=== PATIENT | female | born 1935 | race Caucasian/White ===

== ENCOUNTER → 2016-11-22 | Outpatient (CLI) | payer OTHER ==
[~2016-11-22] VITALS: Ht 160 cm; Wt 87.1 kg
[~2016-11-22] MED LIST: ADVAIR 100-501 EACH; ADVAIR 250-501 EACH INH; ALEVE220 M1 PO; ALEVE220 MG PO; ASPIRIN81 M2 PO; ATORVASTATIN CA40 MG PO; AZELASTINE205.5 MCG/ INH; BLADDER MED; CELEXA 10 MG TA10 M1; CELEXA10 MG PO; CENTRUM SILVER1 EAC4 PO; COUMADIN 2 MG TA2 M1 PO; DEXILANT60 MG PO; FISH OIL 1,001000 M2 PO; FLAXSEED OIL1000 M2 PO; HYDROCODON-ACE1 EAC5 PO; HYDROCODONE-AP1 EAC6 PO; METROGEL55 GM TRANSDERM; MOBIC7.5 MG PO; NAPROSYN250 MG PO; NEURONTIN 300300 M1 PO; NORCO 5-325 TA1 EACH PO; OCUVEL CAPSULE1 EACH PO; OXYBUTYNIN 5 MG5 M2 PO; PLAVIX 75 MG TA75 M1 PO; RESTASIS1 EACH OPHTHALMIC; SYMBICORT160 MCG/4. INH; TOPROL XL25 MG PO; ULTRACET TABLET1 TAB PO; VALACYCLOVIR1000 MG PO; VITAMIN C500 M1 PO
--- NOTE | ~2016-11-22 | HPC ---
[facility] [place] [address] PAIN MANAGEMENT CONSULTATION Name: KINGSLEY MOELLER Room #: REG IRVING Gupta.#: [id number] Admission: 11/22/16 Attend Phys: Bambi Gardner MD Discharge: Date of : 34 Report #: [id number] THIS REPORT FOR: //name// CC: Han Chowdary DATE OF SERVICE: 11/22/2016 PRIMARY CARE PHYSICIAN: Dr. Han Hoff. FOLLOWUP COMPLAINT: Increased back and hip pain since Sunday. FOLLOWUP HISTORY: The patient is an 81-year-old female who has been seen in the pain clinic in the past because of lumbar radiculopathy. She has undergone epidural steroid injections. She returns today indicating that she has noted a worsening of her pain. This started about 3 days ago. After cooking and doing other activities, she noted worsening of pain in her back. At this juncture, it is rated as a 7/10. It involves her right thigh as well as her right hip. She has some pain and discomfort in the anterior portion of her right thigh. She has had some left shoulder discomfort as well. She takes an antiplatelet medication. She is on Plavix. She took the medication this morning. She notes that her pain is worse when she gets up in the morning. It can be problematic when she goes from a sitting to a standing activity. She has used tramadol. This has been marginally helpful. She feels that another epidural steroid injection might be helpful. She was thinking about undergoing an epidural steroid injection. PHYSICAL EXAMINATION: Blood pressure 156/94, pulse 93, respiratory rate 16, room air saturation 97%. Height 5 foot 3, weight 87 kilograms. BMI is 34. The patient has pain and discomfort in the low back area near L4-L5 and L5-S1. Palpation in these areas can reproduce a component of her discomfort. She also has pain, which is radiating down into her right back and into the right thigh. She has been walking with a slight limp and antalgic gait. Overall, her physical therapist says that she is walking reasonably well. She had her hip replaced about 9 months ago. IMPRESSION: 1. Low back pain with some pain radiating down into the legs. History of lumbar radiculopathy. 2. Coronary artery disease with stent placement, treated with Plavix. RECOMMENDATIONS: We discussed treatment options with the patient. Risks and benefits of an epidural steroid injection were reviewed. Given that the patient is on Plavix, we will have her discontinue this medication in followup in the near future, at which time we will consider an epidural steroid injection. We [address] [address] PAIN MANAGEMENT CONSULTATION Name: KINGSLEY MOELLER [facility] [id number] Admission: 11/22/16 Attend Phys: Bambi Gardner MD Discharge: Date of : 34 Report #: [id number] will try a conservative approach. A script for gabapentin 300 mg to be tapered upward per the schedule has been given. The patient will call us if she has any problems with this medication. We would like to thank you for letting us participate in her care. We hope she continues to improve. By: 1323 1435 Bambi Gardner MD /nt
[2016-11-22 10:40] VITALS: BP 156/94
== END ==
LOC: PAIN 11-15 06:39
DX: M54.5 Low back pain (principal); Z86.79 Personal history of other diseases of the circulatory system; Z87.891 Personal history of nicotine dependence

== ENCOUNTER → 2017-01-02 | Outpatient (CLI) | payer OTHER ==
--- NOTE | ~2017-01-02 | 2DMMODE ---
[facility] [address] [employer] [place] [address] 2 D/M-MODE ECHOCARDIOGRAM Name: SAJANKINGSLEY Steve Room #: REG [facility]#: [id number] Admission: 01/02/17 Attend Phys: Andrei Luna MD Discharge: Date of : 34 Date of Service: 01/02/17 1756 Report #: [id number] THIS REPORT FOR: //name// APPROVED REPORT Study performed: 01/02/2017 14:20:41 EXAM: Comprehensive 2D, Doppler, and color-flow Echocardiogram Patient Location: Echo lab Blood Pressure: 139/93 mmHg HR: 66 bpm Other Information Study Quality: Fair Indications Abnormal ECG CAD 2D Dimensions RVDd: 35.20 mm LVEF(%): 58.88 (>50%) IVSd: 12.09 (7-11mm) LVOT Diam: 18.36 (18-24mm) LVDd: 42.69 mm PWd: 11.92 (7-11mm) Ascending Ao: 27.55 (22-36mm) LVDs: 29.50 (25-40mm) Aortic Root: 27.14 mm IVC: 20.00 mm Hollins's LVEF: 58.88 % Volumes Left Atrial Volume (Systole) Single Plane 4CH: 36.14 mL Single Plane 2CH: 31.95 mL LA ESV Index: 20.00 mL/m2 Aortic Valve AoV Peak Brady.: 1.47 m/s AO Peak Gr.: 8.67 mmHg LVOT Max P.71 mmHg LVOT Max V: 0.82 m/s AILEEN Vmax: 1.48 cm2 Mitral Valve E/A Ratio: 0.5 MV Decel. Time: 212.98 ms [facility] [place] [address] 2 D/M-MODE ECHOCARDIOGRAM Name: KINGSLEY MOELLER Steve Room #: [facility]#: [id number] Admission: 01/02/17 Attend Phys: Andrei Luna MD Discharge: Date of : 34 Date of Service: 01/02/17 1756 Report #: [id number] MV E Max Brady.: 0.63 m/s MV A Brady.: 1.30 m/s MV PHT: 61.76 ms IVRT: 173.01 ms Pulmonary Valve PV Peak Brady.: 1.07 m/s PV Peak Gr.: 4.57 mmHg Pulmonary Vein P Vein S: 47.8 m/s P Vein A: 28.08 m/s P Vein D: 42.3 m/s P Vein A Dur.: 128.0 msec Tricuspid Valve TR Peak Brady.: 2.93 m/s RAP Estimate: 10.00 mmHg TR Peak Gr.: 34.29 mmHg Left Ventricle The left ventricle is normal size. There is normal LV segmental wall motion. Mild concentric left ventricular hypertrophy. There is no ventricular septal defect visualized. The left ventricular systolic function is normal. The left ventricular ejection fraction is within the normal range. No left ventricle thrombus noted on this study. LVEF is 55-60%. Mild diastolic dysfunction is present (impaired relaxation pattern). Right Ventricle The right ventricle is normal size. There is normal right ventricular wall thickness. The right ventricular systolic function is normal. Atria The left atrium size is normal. The interatrial septum is intact with no evidence for an atrial septal defect. The right atrium size is normal. Aortic Valve The aortic valve is normal in structure. Trace aortic regurgitation. There is no aortic valvular vegetation. There is no aortic valvular stenosis. Mitral Valve The mitral valve is normal in structure. Mild mitral regurgitation. There is no evidence of mitral valve vegetations. No evidence of mitral valve stenosis. There is no evidence of mitral valve prolapse. [facility] [address] [place] [address] 2 D/M-MODE ECHOCARDIOGRAM Name: KINGSLEY MOELLER Room #: REG CL [facility]#: [id number] Admission: 01/02/17 Attend Phys: Andrei Luna MD Discharge: Date of : 34 Date of Service: 01/02/17 1756 Report #: [id number] Tricuspid Valve The tricuspid valve is normal in structure. There is no tricuspid valve stenosis. Mild tricuspid regurgitation. There is no tricuspid valve vegetations. Pulmonic Valve The pulmonary valve is normal in structure. There is no pulmonic valvular stenosis. Mild pulmonic regurgitation. There is no pulmonic valve vegetations. Great Vessels The aortic root is normal in size. The ascending aorta is normal in size. IVC is upper limits of normal and does not appear to collapse. The pulmonary artery is normal. Pericardium There is no pericardial effusion. There is no pleural effusion. <Conclusion> The left ventricle is normal size. LVEF is 55-60%. The aortic valve is normal in structure. Trace aortic regurgitation. The mitral valve is normal in structure. Mild mitral regurgitation. The tricuspid valve is normal in structure. Mild tricuspid regurgitation. The pulmonary valve is normal in structure. Mild pulmonic regurgitation. <ELECTRONICALLY SIGNED> By: Aniceto Mcgee MD 01/02/171755 55 55 Aniceto Mcgee MD /INF
== END ==
LOC: CV 12-11 11:06
DX: I25.10 Atherosclerotic heart disease of native coronary artery without angina pectoris (principal)

== ENCOUNTER → 2017-05-03 | Outpatient (CLI) | payer OTHER | LOC: RAD 04-20 13:26 | DX: Z12.31 Encounter for screening mammogram for malignant neoplasm of breast (principal) ==

== ENCOUNTER → 2017-05-18 | Outpatient (CLI) | payer OTHER | LOC: ULTRA 08:17 | DX: M71.22 Synovial cyst of popliteal space [Baker], left knee (principal); M79.89 Other specified soft tissue disorders ==

== ENCOUNTER 2017-06-15 08:20 | Outpatient (CLI) | payer OTHER ==
[~2017-06-15] VITALS: Ht 160 cm; Wt 81.8 kg
--- NOTE | ~2017-06-15 | EKG ---
[address] [address] ELECTROCARDIOGRAM REPORT Name: KINGSLEY MOELLER Steve [id number] Admission: 06/15/17 Attend Phys: Mio Blanca Discharge: Date of : 34 Report #: [id number] THIS REPORT FOR: //name// [facility] Test Date: 2017-06-15 Test Time: 10:37:15 Pat Name: KINGSLEY MOELLER Department: Room: Gender: F [employer] Controller: Steve WOOD : 1935 Requested By: Mio Domingo Order Number: [id number] MD: Sal Lilly Measurements Intervals [place] Rate: 130 P: 0 PA: 57 QRS: -42 QRSD: 144 T: 107 QT: 373 QTc: 549 Interpretive Statements Sinus tachycardia Left bundle branch block Compared to ECG 10/04/2016 14:09:34 Sinus rhythm no longer present Electronically Signed On 06-15-2017 10:55:30 CDT by Sal Lilly [email or web address] <ELECTRONICALLY SIGNED> By: Sal Lilly MD 06/15/17 1055 1037 1037 Sal Lilly MD /CAROLINE
--- NOTE | ~2017-06-15 | P ---
[facility] [place] [address] [place] [address] PROCEDURE REPORT Name: KINGSLEY MOELLER Steve Room #: [facility] IRVING White#: [id number] Admission: 06/15/17 Attend Phys: Mio Blanca Discharge: 06/16/17 Date of : 34 Report #: [id number] THIS REPORT FOR: //name// CC: Mio Domingo Zay Chowdary DATE OF SERVICE: 06/16/2017 PREOPERATIVE DIAGNOSIS: Left bundle branch block and complete heart block. POSTOPERATIVE DIAGNOSIS: Left bundle branch block and complete heart block. HISTORY: The patient is an 81-year-old with a history of chronic left bundle branch block who had an episode of complete heart block in the postoperative setting. She is here for dual chamber pacemaker implantation. ANESTHESIA: The patient underwent MAC anesthesia with no anesthesia related complications. DESCRIPTION OF PROCEDURE: The patient underwent informed consent. We discussed the details of the procedure including the risks, which included, but not limited to bleeding, infection, vascular damage, cardiac perforation, or pneumothorax. She understood these risks and is willing to proceed. As such, she was brought to the EP laboratory in a fasting and sedated state, prepped and draped in a sterile fashion, received IV antibiotics and underwent a venogram showing patency of the left axillary vein. Next, I injected lidocaine below the level of left clavicle. Incision was made over the prepectoral fascia and access was then obtained twice to the left axillary vein with sheaths positioned using the modified Seldinger technique and leads were positioned in the right ventricular apex and right atrial appendage both with adequate pacing and sensing thresholds. The leads were sutured to the prepectoral fascia, the device was connected, the pocket was irrigated with vancomycin and the pocket was then closed in 3 layers. Surgical glue was placed to the outer skin layer. The patient awoke neurologically and hemodynamically intact, no complications and no significant bleeding. The implanted pacemaker was [employer] model #[id number], serial #[id number]. Atrial lead was a [employer] model #2088TC, 46 cm, serial [id number] and the RV lead was a [employer] model #2088TC, 52 cm, serial #[id number]. The atrial lead demonstrated P-wave of 1.2 millivolts, pacing impedance of 410 ohms and the pacing threshold 1 volt at 0.4 milliseconds. The RV lead demonstrated R-wave of 7.0 millivolts, pacing impedance of 590 ohms and the pacing threshold of 0.5 volts at 0.4 milliseconds. The device was programmed to the DDD 60-130 mode. CONCLUSIONS: [facility] [address] [place] [address] PROCEDURE REPORT Name: KINGSLEY MOELLER Room #: DEP IRVING White#: [id number] Admission: 06/15/17 Attend Phys: Mio Blanca Discharge: 06/16/17 Date of : 34 Report #: [id number] 1. Successful dual-chamber pacemaker implantation. 2. Satisfactory atrial and ventricular pacing and sensing thresholds. <ELECTRONICALLY SIGNED> By: Sal Lilly MD 07/13/17 1045 1439 0117 Sal Lilly MD /nt
--- NOTE | ~2017-06-15 | S ---
[facility] [place] [address] [address] SURGICAL PATH RPT PROCEDURE Name: KRYSTAL BEAN Room #: DEP [facility].#: [id number] Admission: 06/15/17 Date of : 34 Discharge: 06/16/17 Report #: [id number] Path Case #: [id number] PATHOLOGY REPORT COLLECTION DATE: 06/15/2017 RECEIVED DATE: 06/15/2017 SUBMITTING PHYS: Dr. Melanie Barba OTHER PHYS: Dr. Zay Chowdary SPECIMEN(S) RECEIVED: A.Rectal polyp x2 * * * * * * * * * * * * FINAL DIAGNOSIS: Polyp x2, rectal polyp, endoscopic biopsy: - Hyperplastic polyp identified in all fragments sampled. - Negative for dysplasia. ([facility]; 06/18/2017) PATHOLOGIST: Bita Ascencio M.D. REPORT ELECTRONICALLY SIGNED BY: Bita Ascencio M.D. DATE/TIME: 06/18/2017 17:24 * * * * * * * * * * * * GROSS PATHOLOGY: Received in formalin labeled "Krystal Bean, rectal polyp 2" is a specimen consisting of two portions of smith-brown mucosa which measure 0.3 x 0.2 x 0.2 cm and 0.2 x 0.2 x 0.1 cm. The specimen is submitted entirely in cassette A1. ([facility]; 06/17/2017) CLINICAL HISTORY: Screening, diverticulosis, rectal polyps. INITIAL CPT CODE(S): A; 29791 Professional services performed by [facility] at [facility] [address] [place] [address] Technical services performed by [facility] at [address] [place] [address]. [facility] [address] [place] [address] SURGICAL PATH RPT PROCEDURE Name: KRYSTAL BEAN Room #: SHOAIB White#: [id number] Admission: 06/15/17 Date of : 34 Discharge: 06/16/17 Report #: [id number] Path Case #: [id number] [address] PHONE: [phone] DIRECTOR: Korey Lama M.D. * * * END OF REPORT * * *
--- NOTE | ~2017-06-15 | P ---
[facility] [place] [address] PROCEDURE REPORT Name: KINGSLEY MOELLER Room #: DEP Alecia White#: [id number] Admission: 06/15/17 Attend Phys: Mio Blanca Discharge: 06/16/17 Date of : 34 Report #: [id number] THIS REPORT FOR: //name// CC: Mio Chowdary MD DATE OF SERVICE: 06/15/2017 PROCEDURE PERFORMED: Colonoscopy with biopsies. HISTORY OF PRESENT ILLNESS: The patient is an 81-year-old female recently seen in the office with change in bowel habits, having more constipation, but has diarrhea at times, intermittent abdominal pain. She has a family history of colon cancer in a grandfather, she states that her stools have been thin at times. She has tried MiraLax, which is somewhat helpful. She has been using Levsin since the office visit, which has been helpful. Plan is for colonoscopy. PROCEDURE: The risks and benefits of the procedure were explained to the patient, those risks including, but not limited to bleeding, perforation, and the risk of sedation. She understood these risks and gave informed consent. Sedation was given using propofol per anesthesia. Next, a digital rectal exam was initially performed, which was normal. Next, using a standard Fujinon colonoscope, the scope was placed in the patient's anus and advanced under direct vision to the cecum. The overall prep was excellent. The cecum and ileocecal valve were normal in appearance. Ascending, transverse and descending colon were normal. A few scattered diverticula were noted in the sigmoid colon, no evidence of inflammation, otherwise normal. In the rectum, two 3-4 mm sessile polyps were noted, both were removed with cold forceps. On retroflexion, nonbleeding internal hemorrhoids were noted. The scope was then withdrawn and the procedure terminated. The patient tolerated the procedure well. IMPRESSION: 1. Sigmoid diverticulosis. 2. Two small rectal polyps. 3. Internal hemorrhoids. 4. Otherwise, normal colonoscopy. RECOMMENDATIONS: 1. Await biopsy results. 2. Recommend continue MiraLax and Levsin on a p.r.n. basis, consider CT scan of the abdomen and pelvis if the patient has continued symptoms. [address] [address] PROCEDURE REPORT Name: KINGSLEY MOELLER Room #: DEP IRV[facility] White#: [id number] Admission: 06/15/17 Attend Phys: Mio Blanca Discharge: 06/16/17 Date of : 34 Report #: [id number] Thank you for allowing me to participate in her care. <ELECTRONICALLY SIGNED> By: Mio Domingo MD 06/19/17 1210 1008 1051 Mio Domingo MD /nt
--- NOTE | ~2017-06-15 | 2DMMODE ---
[facility] [place] [address] 2 D/M-MODE ECHOCARDIOGRAM Name: KINGSLEY MOELLER Room #: REG [facility]#: [id number] Admission: 06/15/17 Attend Phys: Mio Redman Discharge: Date of : 34 Date of Service: 06/15/17 1339 Report #: [id number] THIS REPORT FOR: //name// APPROVED REPORT Study performed: 06/15/2017 12:46:40 EXAM: Limited 2D, Doppler, and color-flow Echocardiogram Patient Location: GI LAB Status: routine BSA: 1.80 HR: 105 bpm Other Information Study Quality: Adequate Technically limited study due to lung artifact. Indications Limited follow echo for Heart block. Aortic Valve AoV Peak Brady.: 1.29 m/s AO Peak Gr.: 6.68 mmHg Tricuspid Valve TR Peak Brady.: 2.40 m/s RAP Estimate: 5.00 mmHg TR Peak Gr.: 22.98 mmHg PA Pressure: 28.00 mmHg Left Ventricle The left ventricle is normal size. Paradoxical septal motion consistent with conduction abnormality. Left ventricular systolic function is normal. LVEF is 50-55%. This study is not technically sufficient to allow evaluation of the LV diastolic function. Right Ventricle The right ventricle is normal size. The right ventricular systolic function is normal. Atria The left atrium size is normal. The right atrium size is normal. Aortic Valve [facility] [address] [employer] [place] [address] 2 D/M-MODE ECHOCARDIOGRAM Name: KINGSLEY MOELLER Room #: REG [facility].#: [id number] Admission: 06/15/17 Attend Phys: Mio Redman Discharge: Date of : 34 Date of Service: 06/15/17 1339 Report #: [id number] The aortic valve is normal in structure. No aortic regurgitation is present. There is no aortic valvular stenosis. Mitral Valve The mitral valve is normal in structure. There is no mitral valve regurgitation noted. Tricuspid Valve The tricuspid valve is normal in structure. Trace to mild tricuspid regurgitation. Estimated PAP is 28mmHg. Great Vessels IVC is normal in size and collapses >50% with inspiration. Pericardium There is no pericardial effusion. <Conclusion> The left ventricle is normal size. Paradoxical septal motion consistent with conduction abnormality. LVEF is 50-55%. The aortic valve is normal in structure. The mitral valve is normal in structure. The tricuspid valve is normal in structure. Trace to mild tricuspid regurgitation. Estimated PAP is 28mmHg. There is no pericardial effusion. <ELECTRONICALLY SIGNED> By: Aniceto Mcgee MD 06/15/17 1339 133 1339 Aniceto Mcgee MD /INF
--- NOTE | ~2017-06-15 | CATHLAB ---
[facility] [address] [place] [address] INVASIVE PROCEDURE REPORT Name: KINGSLEY MOELLER Room #: SHOAIB White#: [id number] Admission: 06/15/17 Attend Phys: Mio Redman Discharge: 06/16/17 Date of : 33 Date of Service: Report #: [id number] THIS REPORT FOR: //name// By: D: T: /INF
[2017-06-15 13:46] LABS: HEMATOCRIT 44.7 % (37.0-47.0); MCHC 33.6 g/dL (28.0-37.0); MCV 89.4 fL (80.0-100.0); RDW 14.3 % (10.5-14.5); WBC 7.4 thou/uL (4.0-11.0)
[2017-06-15 13:55] LABS: APTT 29.1 Seconds (24.5-32.8); INR 1.1; PROTIME 10.9 Seconds (9.3-11.4)
[2017-06-15 13:59] VITALS: BP 114/70
[2017-06-15 14:10] LABS: ALBUMIN 3.4 g/dL (3.4-5.0); CREATININE 0.9 mg/dL (0.6-1.0); POTASSIUM 3.5 mmol/L (3.5-5.1); TOTAL BILIRUBIN 0.4 mg/dL (<0.1-1.0); TOTAL PROTEIN 6.7 g/dL (6.4-8.2)
[2017-06-15] MEDS ORDERED: OXYBUTYNIN 5 MG5 M2 PO (14:11)
[2017-06-15] MEDS ORDERED: OCUVITE LUTEIN1 EAC1 PO (14:13)
[2017-06-15 14:18] LABS: CALCIUM 8.9 mg/dL (8.5-10.1)
[2017-06-15 18:38] VITALS: BP 146/85
[2017-06-15 19:32] VITALS: BP 158/102
[2017-06-15 23:36] VITALS: BP 138/80
[2017-06-16 04:20] VITALS: BP 134/71
[2017-06-16 04:27] VITALS: BP 134/71
[2017-06-16 07:20] VITALS: BP 143/79
[2017-06-16 11:50] VITALS: BP 147/77
[2017-06-16 12:32] VITALS: BP 147/77
[2017-06-16 14:43] VITALS: BP 147/77
== END 2017-06-16 14:55 | disposition home or self-care (01) ==
LOC: GI 08:20 → 2N 19:23 → GI 06-16 14:55
PROVIDERS: Internal Medicine Cardiovascular Disease; Nurse Practitioner Gerontology
DX: I44.7 Left bundle-branch block, unspecified (principal); I44.2 Atrioventricular block, complete; K57.30 Diverticulosis of large intestine without perforation or abscess without bleeding; K62.1 Rectal polyp; K64.8 Other hemorrhoids; J45.909 Unspecified asthma, uncomplicated; F32.9 Major depressive disorder, single episode, unspecified; K21.9 Gastro-esophageal reflux disease without esophagitis; B00.89 Other herpesviral infection; I25.10 Atherosclerotic heart disease of native coronary artery without angina pectoris; I10 Essential (primary) hypertension; E78.5 Hyperlipidemia, unspecified; Z88.1 Allergy status to other antibiotic agents; Z88.2 Allergy status to sulfonamides; Z79.82 Long term (current) use of aspirin; Z79.899 Other long term (current) drug therapy; Z87.891 Personal history of nicotine dependence; Z80.0 Family history of malignant neoplasm of digestive organs; Z82.49 Family history of ischemic heart disease and other diseases of the circulatory system; Z95.5 Presence of coronary angioplasty implant and graft; Z86.73 Personal history of transient ischemic attack (TIA), and cerebral infarction without residual deficits
CPT/HCPCS: 10081; 62110; 70005

== ENCOUNTER → 2017-06-22 | Outpatient (CLI) | payer OTHER ==
[~2017-06-22] MED LIST changes: +OCUVITE LUTEIN1 EAC1 PO
== END ==
LOC: CAT 09:21
DX: J01.90 Acute sinusitis, unspecified (principal); M26.69 Other specified disorders of temporomandibular joint

== ENCOUNTER → 2017-07-27 | Outpatient (CLI) | payer OTHER | LOC: RAD 12:23 | DX: J98.11 Atelectasis (principal); R09.89 Other specified symptoms and signs involving the circulatory and respiratory systems; J98.4 Other disorders of lung; I25.10 Atherosclerotic heart disease of native coronary artery without angina pectoris; Z98.890 Other specified postprocedural states ==

== ENCOUNTER → 2017-08-01 | Outpatient (CLI) | payer OTHER ==
[2017-08-01 09:49] LABS: CREATININE 0.9 mg/dL (0.6-1.0)
== END ==
LOC: LABMALL 08:52
PROVIDERS: Internal Medicine Pulmonary Disease
DX: R06.00 Dyspnea, unspecified (principal); G47.33 Obstructive sleep apnea (adult) (pediatric)

== ENCOUNTER → 2017-09-21 | Outpatient (CLI) | payer OTHER | LOC: CAT 13:13 | DX: J01.91 Acute recurrent sinusitis, unspecified (principal) ==

== ENCOUNTER → 2017-10-26 | Outpatient (CLI) | payer OTHER | LOC: LABMALL 09:12 | PROVIDERS: Internal Medicine Pulmonary Disease | DX: J98.4 Other disorders of lung (principal); J47.9 Bronchiectasis, uncomplicated ==

== ENCOUNTER → 2017-11-02 | Outpatient (CLI) | payer OTHER | LOC: SLEEPLAB 11:42 | DX: G47.33 Obstructive sleep apnea (adult) (pediatric) (principal); R06.00 Dyspnea, unspecified ==

== ENCOUNTER → 2017-12-07 | Outpatient (CLI) | payer OTHER | LOC: SLEEPLAB 07:53 | DX: G47.33 Obstructive sleep apnea (adult) (pediatric) (principal) ==

== ENCOUNTER → 2018-06-25 | Outpatient (CLI) | payer OTHER ==
--- NOTE | ~2018-06-25 | 2DMMODE ---
[facility] [place] [address] 2 D/M-MODE ECHOCARDIOGRAM Name: KINGSLEY MOELLER Room #: REG [facility]#: [id number] Admission: 06/25/18 Attend Phys: Sal Lilly Discharge: Date of : 33 Date of Service: 06/25/18 1134 Report #: [id number] THIS REPORT FOR: //name// APPROVED REPORT Study performed: 06/25/2018 10:08:31 EXAM: Comprehensive 2D, Doppler, and color-flow Echocardiogram Patient Location: Echo lab Room #: 206 Status: routine BSA: 1.80 HR: 69 bpm BP: 153/71 mmHg Rhythm: NSR Other Information Study Quality: Adequate Technically limited study due to lung artifact. Indications Pacemaker, short of breath. Hx: CAD, stents. 2D Dimensions RVDd: 38.98 mm IVSd: 13.56 (7-11mm) LVOT Diam: 18.38 (18-24mm) LVDd: 42.90 mm PWd: 8.76 (7-11mm) Ascending Ao: 29.38 (22-36mm) LVDs: 28.19 (25-40mm) Aortic Root: 28.40 mm Volumes Left Atrial Volume (Systole) Single Plane 4CH: 26.07 mL Single Plane 2CH: 42.02 mL LA ESV Index: 21.00 mL/m2 Aortic Valve AoV Peak Brady.: 1.59 m/s AO Peak Gr.: 10.08 mmHg LVOT Max P.88 mmHg LVOT Max V: 1.10 m/s AILEEN Vmax: 1.84 cm2 Mitral Valve E/A Ratio: 0.5 [facility] [place] [address] 2 D/M-MODE ECHOCARDIOGRAM Name: KINGSLEY MOELLER Room #: [facility]#: [id number] Admission: 06/25/18 Attend Phys: Sal Lilly Discharge: Date of : 33 Date of Service: 06/25/18 1134 Report #: [id number] MV Decel. Time: 288.63 ms MV E Max Brady.: 0.62 m/s MV A Brady.: 1.20 m/s MV PHT: 83.70 ms IVRT: 78.43 ms Pulmonary Valve PV Peak Brady.: 1.07 m/s PV Peak Gr.: 4.56 mmHg Pulmonary Vein P Vein S: 0.48 m/s P Vein A: 0.35 m/s P Vein D: 0.20 m/s P Vein A Dur.: 133.8 msec P Vein S/D Ratio: 2.40 Tricuspid Valve TR Peak Brady.: 2.71 m/s RAP Estimate: 5.00 mmHg TR Peak Gr.: 29.32 mmHg PA Pressure: 34.00 mmHg Left Ventricle The left ventricle is normal size. Paradoxical septal motion consistent with paced rhythm. Mild concentric left ventricular hypertrophy. Left ventricular systolic function is normal. LVEF is 55%. Mild diastolic dysfunction is present (impaired relaxation pattern). Right Ventricle The right ventricle is normal size. The right ventricular systolic function is normal. Atria The left atrium size is normal. The right atrium size is normal. Aortic Valve Aortic valve leaflets are mildly thickened. No aortic regurgitation is present. There is no aortic valvular stenosis. Mitral Valve The mitral valve is normal in structure. Mild mitral regurgitation. Tricuspid Valve The tricuspid valve is normal in structure. Mild tricuspid regurgitation. Estimated PAP is 35mmHg. [facility] [address] [place] [address] 2 D/M-MODE ECHOCARDIOGRAM Name: KINGSLEY MOELLER Room #: [facility] [id number] Admission: 06/25/18 Attend Phys: Sal Lilly Discharge: Date of : 33 Date of Service: 06/25/18 1134 Report #: [id number] Pulmonic Valve Pulmonic valve is not well visualized. Mild pulmonic regurgitation. Great Vessels The aortic root is normal in size. The ascending aorta is normal in size. IVC is normal in size and collapses >50% with inspiration. Pericardium There is no pericardial effusion. <Conclusion> The left ventricle is normal size. LVEF is 55%. Paradoxical septal motion consistent with paced rhythm. Aortic valve leaflets are mildly thickened. The mitral valve is normal in structure. Mild mitral regurgitation. The tricuspid valve is normal in structure. Mild tricuspid regurgitation. Estimated PAP is 35mmHg. Pulmonic valve is not well visualized. Mild pulmonic regurgitation. There is no pericardial effusion. <ELECTRONICALLY SIGNED> By: Aniceto Mcgee MD 06/25/18 1134 1134 1134 Aniceto Mcgee MD /INF
== END ==
LOC: CV 09:44
DX: I08.1 Rheumatic disorders of both mitral and tricuspid valves (principal); I25.10 Atherosclerotic heart disease of native coronary artery without angina pectoris; Z95.0 Presence of cardiac pacemaker

== ENCOUNTER → 2018-11-05 | Outpatient (CLI) | payer OTHER | LOC: CAT 09:17 | DX: R51 Headache (principal) ==

== ENCOUNTER → 2018-12-18 | Outpatient (CLI) | payer OTHER | LOC: CAT 12:29 | DX: M47.812 Spondylosis without myelopathy or radiculopathy, cervical region (principal); M50.31 Other cervical disc degeneration, high cervical region; M48.02 Spinal stenosis, cervical region; Z88.0 Allergy status to penicillin; Z88.1 Allergy status to other antibiotic agents; Z88.2 Allergy status to sulfonamides ==

== ENCOUNTER → 2019-05-20 | Outpatient (CLI) | payer OTHER | LOC: RAD 10:36 | DX: Z12.31 Encounter for screening mammogram for malignant neoplasm of breast (principal) ==

== ENCOUNTER → 2019-06-30 | Outpatient (CLI) | payer OTHER | LOC: NUC 11:43 | DX: R07.9 Chest pain, unspecified (principal); I48.91 Unspecified atrial fibrillation; I25.10 Atherosclerotic heart disease of native coronary artery without angina pectoris; Z95.0 Presence of cardiac pacemaker; Z82.49 Family history of ischemic heart disease and other diseases of the circulatory system; Z87.891 Personal history of nicotine dependence ==

== ENCOUNTER → 2020-06-03 | Outpatient (CLI) | payer OTHER | LOC: SJCVC 13:14 | PROVIDERS: ATTEND Internal Medicine Cardiovascular Disease | DX: Z45.018 Encounter for adjustment and management of other part of cardiac pacemaker (principal); I44.7 Left bundle-branch block, unspecified; R94.31 Abnormal electrocardiogram [ECG] [EKG]; I49.3 Ventricular premature depolarization; I49.5 Sick sinus syndrome; I44.2 Atrioventricular block, complete; I25.10 Atherosclerotic heart disease of native coronary artery without angina pectoris; K21.9 Gastro-esophageal reflux disease without esophagitis; J45.909 Unspecified asthma, uncomplicated; I10 Essential (primary) hypertension; Z82.49 Family history of ischemic heart disease and other diseases of the circulatory system; Z79.899 Other long term (current) drug therapy; Z87.891 Personal history of nicotine dependence; Z79.82 Long term (current) use of aspirin ==

== ENCOUNTER → 2020-06-23 | Outpatient (CLI) | payer OTHER | LOC: BC 10:18 | PROVIDERS: ATTEND Family Medicine | DX: Z12.31 Encounter for screening mammogram for malignant neoplasm of breast (principal) ==

== ENCOUNTER → 2021-02-01 | Outpatient (CLI) | payer OTHER | LOC: RAD 13:14 | PROVIDERS: ATTEND Internal Medicine | DX: J98.11 Atelectasis (principal) ==

== ENCOUNTER → 2021-06-14 | Outpatient (CLI) | payer OTHER | LOC: SJCVCIMAG 13:46 | PROVIDERS: ATTEND Internal Medicine Cardiovascular Disease | DX: R94.31 Abnormal electrocardiogram [ECG] [EKG] (principal); I08.8 Other rheumatic multiple valve diseases; I49.5 Sick sinus syndrome; I49.3 Ventricular premature depolarization; I25.10 Atherosclerotic heart disease of native coronary artery without angina pectoris; M19.90 Unspecified osteoarthritis, unspecified site; J45.909 Unspecified asthma, uncomplicated; F32.9 Major depressive disorder, single episode, unspecified; K21.9 Gastro-esophageal reflux disease without esophagitis; I10 Essential (primary) hypertension; I44.7 Left bundle-branch block, unspecified; G47.30 Sleep apnea, unspecified; Z87.891 Personal history of nicotine dependence; Z72.89 Other problems related to lifestyle; Z79.82 Long term (current) use of aspirin; Z79.899 Other long term (current) drug therapy; Z95.0 Presence of cardiac pacemaker; Z82.49 Family history of ischemic heart disease and other diseases of the circulatory system; Z88.2 Allergy status to sulfonamides; Z88.8 Allergy status to other drugs, medicaments and biological substances ==

== ENCOUNTER → 2021-06-24 | Outpatient (CLI) | payer OTHER | LOC: BC | PROVIDERS: ATTEND Family Medicine | DX: Z12.31 Encounter for screening mammogram for malignant neoplasm of breast (principal) ==

== ENCOUNTER → 2021-07-07 | Outpatient (CLI) | payer OTHER | LOC: CAT 10:56 | PROVIDERS: ATTEND Nurse Practitioner | DX: S09.90XA Unspecified injury of head, initial encounter (principal); R51.9 Headache, unspecified; X58.XXXA Exposure to other specified factors, initial encounter; Y93.89 Activity, other specified; Y92.89 Other specified places as the place of occurrence of the external cause; Y99.8 Other external cause status ==